=== PATIENT | male | born 1950 | race Caucasian/White ===

== ENCOUNTER 2017-02-27 17:31 | Emergency (ER) | payer OTHER ==
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
== END 2017-02-27 21:50 | disposition home or self-care (01) ==
LOC: FB.ED 17:31
DX: F10.229 Alcohol dependence with intoxication, unspecified (principal)
CPT/HCPCS: 36415; 70450; 71010; 80053; 80305; 81001; 84484; 85025; 93005; 99284; G0480